=== PATIENT | male | born 1975 | race Caucasian/White ===

== ENCOUNTER 2023-11-15 06:44 | Emergency (ER) | payer BC, SELFPAY ==
[2023-11-15 06:49] VITALS: BP 131/95
[2023-11-15 07:17] LABS: % Basophils 0.3 % (0-2); % Eosinophils 1.9 % (0-6); % Immature Granulocytes 0.3 % (0-0.5); % Lymphocytes 18.2 % (20.5-51.1); % Monocytes 9.4 % (1.7-9.3); % Neutrophils 69.9 % (42.2-75.2); Absolute Eosinophils 0.2 10^3/uL (0-0.7); Absolute Lymphocytes 1.9 10^3/uL (1.2-3.4); Absolute Neutrophils 7.1 10^3/uL (1.4-6.5); Hematocrit 45.8 % (39.0-52.0); Hemoglobin 16.6 g/dL (13.0-18.0); Mean Corp Hgb Conc. 36.2 g/dL (33.0-37.0); Mean Corpuscular Hgb 32.4 pg (27.0-31.0); Mean Corpuscular Volume 89.5 fL (80.0-94.0); Mean Platelet Volume 10.2 fL (7.4-10.4); Nucleated Red Blood Cells % 0 % (-); Platelet Count 238 10^3/uL (130-400); Red Blood Cell Count 5.12 10^6/uL (4.70-6.10); White Blood Cell Count 10.2 10^3/uL (4.8-10.8)
[2023-11-15 07:34] LABS: ALT (SGPT) 19 U/L (0-50); AST (SGOT) 25 U/L (17-59); Albumin 4.3 g/dl (3.5-5.0); Alkaline Phosphatase 54 U/L (38-126); Blood Urea Nitrogen 13 mg/dl (9-20); Calcium 9.4 mg/dl (8.4-10.2); Carbon Dioxide 30 mmol/L (22-30); Chloride 105 mmol/L (98-107); Glucose 92 mg/dl (70-99); Potassium 4.5 mmol/L (3.5-5.1); Sodium 142 mmol/L (135-145); Total Protein 6.6 g/dl (6.3-8.2); eGFR > 60.00
[2023-11-15 07:42] LABS: Troponin I < 0.012 ng/ml
[2023-11-15 08:03] VITALS: BP 114/87
[2023-11-15 08:10] VITALS: BMI 25.9
--- NOTE | 2023-11-15 08:30 | ED.GENMED ---
History of Present Illness
<Riya Capone PA-C - Last Filed: 11/15/23 16:29>
General
Chief Complaint: Chest Pain
Source: patient
Exam Limitations: none
Time Seen by Provider: 11/15/23 08:07
Nursing documentation reviewed up to this point in time: agreed with
History of Present Illness
History of Present Illness:
48 y/o M with h/o newly diagnosed afib on metoprolol and eliquis
(eliquis since 11/02)
followed by dr. edmundo dai and dr. causey
plan is likely ablation in february
woke up at 3 AM with pleuritic chest pain, it feels like he cannot take a deep breath. He said he is never had this feeling before. He does not otherwise feel short of breath, he has no exertional chest pain. Nothing makes the pain better. He
did not try taking any medications. Patient has not had a fever, chills, recent URI, cough, hemoptysis, leg swelling. No recent long travel. He has been compliant with his Eliquis and starting its couple of weeks ago. He never was worked up for
a PE
Patient said that he had a normal echocardiogram, this was done on 8�9
He has no history of having a heart murmur.
He denies sweatiness, nausea, vomiting, abdominal pain
Past History
<Riya Capone PA-C - Last Filed: 11/15/23 16:29>
Past History
ED Past Medical History: Arrthythmia (Atrial fibrillation)
ED Past Surgical History: None
Social History
Tobacco: Non-smoker
Review of Systems
<Riya Capone PA-C - Last Filed: 11/15/23 16:29>
Review of Systems
Allergies reviewed?: Yes
All Other Systems: Not applicable
Phy Exam
<Riya Capone PA-C - Last Filed: 11/15/23 16:29>
Physical Exam
Physical Exam:
GENERAL: Alert , in no apparent distress at rest looks minimally uncomfortable
EYE: pupils equal and reactive
NECK: Supple
ENT: o/p clr, mmm.
CARDIAC: Irregularly irregular, 4 out of 6 murmur, sounds systolic, left sternal border and mitral
No JVD
LUNGS: Discomfort with deep breathing but otherwise not tachypneic
Possibly faint crackles left upper lobe
No chest wall tenderness
No rashes
ABDOMEN: Soft, without focal tenderness, no r/g, no cvat, normal bowel sounds
NEUROLOGICAL: Alert and oriented, no focal neuro deficits
SKIN: Warm and dry, skin intact.
MUSCULOSKELETAL: No edema, well perfused. neg rafa's sign
PSYCH: Normal and appropriate interaction.
Scores
<Riya Capone PA-C - Last Filed: 11/15/23 16:29>
Heart Score for Chest Pain Patients
STEMI patient?: No
History: Slightly or Non-Suspicious
ECG: Nonspecific Repolarization
Age: >45 - <65 years
Risk Factors: 1 or 2 Risk Factors
Troponin: </= Normal Limit
Heart Score for Chest Pain Patients: 3
Heart Score Risk: 2.5% MACE over next 6 weeks
Course
<Riya Capone PA-C - Last Filed: 11/15/23 16:29>
Orders/Labs/Results
Orders:
Orders
11/15/23 06:48
EKG [Electrocardiogram (*1)] Urgent
Reason for Study: Chest Pain
EKG- Treatment ONCE
11/15/23 06:57
Electrocardiogram (*1) Urgent
Reason for Study: Chest Pain
11/15/23 06:58
EKG- Treatment ONCE
11/15/23 07:06
C-Reactive Protein Urgent
Comment: ADD ON
Complete Blood Count/With Diff Urgent
Comprehensive Metabolic Panel Urgent
Erythrocyte Sed Rate Urgent
Comment: ADD ON
NT-proBNP Urgent
Comment: ADD ON
Troponin I Urgent
11/15/23 08:27
CARDIOLOGY CONSULT Urgent
Consulting Provider: Shelia Buckley
Was physician already notified: Yes
Acetaminophen [Tylenol] 1,000 mg PO NOW STA
11/15/23 08:28
Add On- LAB Urgent
Tests Added?: BNP
11/15/23 08:29
Echo Follow up Study W Dop Urgent
Reason for Study: chest pain, new murmur
CT Chest Pe Study Urgent
Comment:
Reason For Exam: pleuritic cp, new afib
11/15/23 08:31
Add On- LAB Urgent
Tests Added?: ESR, CRP
11/15/23 10:00
Electrocardiogram (*1) Urgent
Reason for Study: Chest Pain
11/15/23 10:03
Troponin I Urgent
11/15/23 12:14
Metoprolol Xl [Toprol Xl] 25 mg PO NOW STA
11/15/23 12:33
Mag Hydrox/Al Hydrox/Simeth [Maalox] 30 ml PO NOW STA
Abnormal Lab Results
11/15/23
07:06
MCH 32.4 H pg
(27.0-31.0)
Absolute Neuts (auto) 7.1 H 10^3/uL
(1.4-6.5)
Absolute Monos (auto) 1.0 H 10^3/uL
(0.1-0.6)
Lymphocytes % 18.2 L %
(20.5-51.1)
Monocytes % 9.4 H %
(1.7-9.3)
11/15/23 07:06
11/15/23 07:06
Vital Signs
Initial and Last Documented VS:
Initial Vital Signs
Temp Pulse Resp BP Pulse Ox
97.7 F 82 16 131/95 98
11/15/23 06:49 11/15/23 06:49 11/15/23 06:49 11/15/23 06:49 11/15/23 06:49
Last Documented Vital Signs
Temp Pulse Resp BP Pulse Ox
97.7 F 111 14 115/72 96
11/15/23 06:49 11/15/23 12:29 11/15/23 12:00 11/15/23 12:29 11/15/23 11:00
<Felisha Evans MD - Last Filed: 11/15/23 10:48>
Orders/Labs/Results
Orders:
Orders
11/15/23 06:48
EKG [Electrocardiogram (*1)] Urgent
Reason for Study: Chest Pain
EKG- Treatment ONCE
11/15/23 06:57
Electrocardiogram (*1) Urgent
Reason for Study: Chest Pain
11/15/23 06:58
EKG- Treatment ONCE
11/15/23 07:06
C-Reactive Protein Urgent
Comment: ADD ON
Complete Blood Count/With Diff Urgent
Comprehensive Metabolic Panel Urgent
Erythrocyte Sed Rate Urgent
Comment: ADD ON
NT-proBNP Urgent
Comment: ADD ON
Troponin I Urgent
11/15/23 08:27
CARDIOLOGY CONSULT Urgent
Consulting Provider: Shelia Buckley
Was physician already notified: Yes
Acetaminophen [Tylenol] 1,000 mg PO NOW STA
11/15/23 08:28
Add On- LAB Urgent
Tests Added?: BNP
11/15/23 08:29
Echo Follow up Study W Dop Urgent
Reason for Study: chest pain, new murmur
CT Chest Pe Study Urgent
Comment:
Reason For Exam: pleuritic cp, new afib
11/15/23 08:31
Add On- LAB Urgent
Tests Added?: ESR, CRP
11/15/23 10:00
Electrocardiogram (*1) Urgent
Reason for Study: Chest Pain
11/15/23 10:03
Troponin I Urgent
11/15/23 12:14
Metoprolol Xl [Toprol Xl] 25 mg PO NOW STA
11/15/23 12:33
Mag Hydrox/Al Hydrox/Simeth [Maalox] 30 ml PO NOW STA
Abnormal Lab Results
11/15/23
07:06
MCH 32.4 H pg
(27.0-31.0)
Absolute Neuts (auto) 7.1 H 10^3/uL
(1.4-6.5)
Absolute Monos (auto) 1.0 H 10^3/uL
(0.1-0.6)
Lymphocytes % 18.2 L %
(20.5-51.1)
Monocytes % 9.4 H %
(1.7-9.3)
11/15/23 07:06
11/15/23 07:06
Vital Signs
Initial and Last Documented VS:
Initial Vital Signs
Temp Pulse Resp BP Pulse Ox
97.7 F 82 16 131/95 98
11/15/23 06:49 11/15/23 06:49 11/15/23 06:49 11/15/23 06:49 11/15/23 06:49
Last Documented Vital Signs
Temp Pulse Resp BP Pulse Ox
97.7 F 111 14 115/72 96
11/15/23 06:49 11/15/23 12:29 11/15/23 12:00 11/15/23 12:29 11/15/23 11:00
<Riya Capone PA-C - Last Filed: 11/15/23 16:29>
MDM/Problems Addressed
Differential Diagnosis Includes:
Pericardial effusion, pericarditis, tamponade, leaflet rupture, PE
MDM/Problems Addressed:
48-year-old male with a history of newly diagnosed atrial fibrillation on anticoagulants presents for pleuritic chest discomfort that woke him up at 3 AM. Pain is worse only with deep breathing and not exertional. He did not have any associated
symptoms. He was told he had a normal echocardiogram and was never told of any abnormal heart sounds previously. On exam his vitals are stable, he looks minimally uncomfortable but in no distress. He has no chest wall tenderness. I appreciate a
loud systolic sounding murmur on the left sternal border, there is no JVD. I do not appreciate crackles in his bases. Patient has no edema. EKG was reviewed and compared to his old 1 which I do appreciate that he has slight upsloping and minimal
elevation of his J-point in the ST segments diffusely, which could suggest pericarditis. I added on ESR and CRP. Given the new atrial fibrillation diagnosis and recent Eliquis I will also rule out a PE. I spoke with Dr. Buckley on-call for "Caridad"Conner who authorized the echocardiogram. We will also trend troponins the first troponin was negative
pt had fairly unchanged echo, trace TR, trace AR
normal ef
no effusion
esr/crp neg
trylenol helped pain briefly but it did return
he has CT showing no PE
he does have cardiomegaly as well as esophagitis
pt did eat a spicy meal last night
cards did consult and pt's HR went up while here to 100s
otherwise vitals stable
pt had 2 neg trops
ekg shows some j point elevation which the cariologist compared to preivous and didn't think was significantly changed
it is not diffuse
cards recommended inc toprol xl to 25 mg bid irather than daily
add flecainide
and move up appt to next week
pt feels comfortable with this plan
also i do suspect some GERD/esophgagitis
will give maalox and protonix
seen by ed attending
<Riya Capone PA-C - Last Filed: 11/15/23 16:29>
*Critical Care Note
Total Time (30-74mins, 75-104mins- exclusive of procedures): Not Applicable
ED Attending Note
<Riya Capone PA-C - Last Filed: 11/15/23 16:29>
-
Portions of this chart may have been created with voice recognition software.� Occasional wrong word or��sound alike� substitutions may have occurred due to the inherent limitations of voice recognition software.
<Felisha Evans MD - Last Filed: 11/15/23 10:48>
ED Attending Note
Patient seen and examined by attending physician: Yes
I performed the substantive portion of visit, reviewed & personally made and approve the management plan that is documented in note by myself or GARCIA.: Yes
ED Attending Note:
Patient is a 40-year-old male with history of A-fib on Eliquis presenting to the emergency department with chest pain. Has been in A-fib for the past few days. Has plan for ablation in February. Compliant with Eliquis. Woke up with chest pain at
3 AM. It is midsternal. Does not radiate. It is pleuritic. Does get better with leaning forward. No recent infections. No shortness of breath. No leg swelling. No nausea vomiting diaphoresis. Vitals are notable for patient who is currently
in A-fib in the low 90s to 1 teens. Exam does show comfortable appearing man with irregularly irregular rhythm that is rate controlled in the low 100s though occasionally does go up to the 140s with speaking. Generalized radial pulses bilaterally.
Differential consists of pericarditis versus ACS versus PE though less likely given compliance with Eliquis. EKG per my interpretation with slight elevation anterior laterally. ARAMIS did discuss with cardiology. Recommending CT PE, echo. Will
obtain delta troponin. Will pain control. Cardiology will evaluate patient dispo pending delta troponin and pain reevaluation.
Discharge Plan
Departure
Patient Disposition: Home (Routine Discharge)
Date of Disposition: 11/15/23
Time of Disposition: 12:33
Patient with high blood pressure during this ER visit?: No
Condition: Fair
Covid-19: Not Applicable
Discharge Problem:
Atrial fibrillation, Chest pain, Esophagitis
Instructions: Atrial Fibrillation (DC), Acid reflux and GERD in adults, Chest pain - Discharge instructions
Prescriptions:
New
pantoprazole [Protonix] 20 mg tablet,delayed release (DR/EC)
20 mg PO DAILY Qty: 30 0RF
flecainide 50 mg tablet
50 mg PO Q12H Qty: 60 5RF
Referrals:
[facility] [Provider Group] - 11/20/23 11:40 am (You have an EKG visit at [place] office. Please call with questions. )
Sherry Lynn MD [Family Provider] -
Galilea Payton PA-C [Specified Professional Personl] - 11/29/23 3:40 pm (You have a cardiology follow up appointment at the [place] office with Dr. Causey's physician reference library assistant Galilea. Please call with questions. )
Activity Restrictions/Additional Instructions:
THE SUPERINTENDENT TESTS RECOMMENDED INCREASING YOUR TOPROL TO TWICE A DAY AND ADDING A NEW MEDICATION FOR YOUR HEART RATE CALLED FLECAINIDE TWICE A DAY
MAKE SURE TO AVOID STANDING UP TOO QUICKLY
CONTINUE YOUR ELIQUIS
USE PROTONIX 20 MG IN THE MORNING 45 MINUTES BEFORE EATING/DRINKING (YOU CAN TAKE WITH GLASS OF WATER).
AVOID SPICY FOODS, EATING LATE AT NIGHT
USE MAALOX NEEDED EVERY 8 HOURS
TAKE TYLENOL EVERY 6 HOURS NEEDED
FOLLOW UP WITH SUPERINTENDENT TESTS PLANNED
YOU ALSO SHOULD SEE A GI DOCTOR FOR FURTHER EVAULATION, POSSIBLY ENDOSCOPY
RETURN FOR: BLACK STOOL, VOMITING, SHORTNESS OF BREATH, PASSING OUT, FEVER, OR ANY CONCERNS.
Interventions
Interventions:
*Risk Screen - Suicide Last Done: 11/15/23 08:00
*General Assessment Last Done: 11/15/23 08:00
*Neglect/Abuse Screening Last Done: 11/15/23 08:00
*Nursing Disposition Last Done: 11/15/23 12:56
ED- Cardiac Assessment Last Done: 11/15/23 09:07
Discharge Date and Time
Discharge Date/Time: 11/15/23 12:57
Print Language: FAROESE
[2023-11-15] MEDS: TYLENOL 1000 MG PO (08:38)
[2023-11-15 09:00] VITALS: BP 122/72
[2023-11-15 09:08] LABS: NT-proBNP 886 pg/ml
[2023-11-15 10:08] LABS: Erythrocyte Sed Rate 3 mm/hour (0-20)
[2023-11-15 10:14] VITALS: BP 102/62
[2023-11-15 10:40] LABS: Troponin I < 0.012 ng/ml
[2023-11-15 11:00] VITALS: BP 106/83
[2023-11-15 11:40] LABS: C-Reactive Protein < 5.00 mg/L (0.0-10.00)
--- NOTE | 2023-11-15 11:47 | CON.CAR ---
Consultation
Consultation Request
Date/Time Consultation Performed: 11/15/23
Requesting Provider: Riya Capone PA-C
Performing Provider: Bailee Valdovinos PA-C for Dr. Alexy Buckley
Reason for Consultation: afib, CP
Medical History
-
Chief Complaint: CP
History of Present Illness:
Patient is a 48 yo M diagnosed with paroxysmal atrial fibrillation 09/2023. He was seen by Dr. Francois and underwent 14 day cardiac/vascular sonographer showing 10% afib burden. He was started on eliquis and toprol. He reports since that time he has had paroxysms of
atrial fibrillation. He was referred to Dr. Prieto to discuss ablation, presently scheduled for 02/19/24. He reports he feels he has been in afib since Sunday. He typically feels more fatigued and checks is rhythm on his watch and checks pulse. He
states this morning he woke up at 3AM to go to the bathroom and noted burning central chest discomfort, worse with movement and taking a deep breath. He reports he has had this before although more mild with afib in past. He denies CP or SOB
limiting his activity. States he plays golf and tennis although has not been cycling as much. Troponins negative x 2. Chest CT without evidence of dissection or PE. He is currently in atrial fibrillation with heart rates in 80s to 110s. Pain
improved somewhat with Tylenol. Cardiology consulted for evaluation
PMH:
Paroxysmal atrial fibrillation
Chronic anticoagulation with Eliquis
Past Medical History
Past Medical History: Other (in HPI)
Social History
Tobacco: Non-Smoker
Alcohol: Occasional
Personal:
Living: With Family
Employment: Employed
Family History
Family History: Reviewed & Not Pertinent
Allergies / Home Medications
Allergy/AdvReac Type Severity Reaction Status Date / Time
No Known Allergies Allergy Verified 11/15/23 06:49
Review of Systems
-
History Source: Patient and Family
All other systems: Negative unless noted
Physical Exam
Vital Signs
Temp Pulse Resp BP Pulse Ox
97.7 F 89 14 106/83 96
11/15/23 06:49 11/15/23 11:00 11/15/23 11:00 11/15/23 11:00 11/15/23 11:00
Lab Results
11/15/23 07:06
11/15/23 07:06
Troponin I < 0.012 ng/ml 11/15/23 10:03
Gye-X-Duduezmclux Pept 886 pg/ml 11/15/23 07:06
Physical Exam
General: No Apparent Distress and Comfortable
HEENT: Normocephalic, Anicteric and Moist Mucous Membranes
Respiratory: Clear and Non Labored Respirations
Cardiac: S1/S2 and Regular Rhythm
GI: Soft, Non Tender, Non Distended and Normal Bowel Sounds
Musculoskeletal: No Clubbing, No Cyanosis and No Edema
Skin: Warm and Dry
Neuro: AO x 3
Impression / Plan
-
Primary motorcycle repairer: Dr. Francois
Primary EP: Dr. Prieto
Assessment:
Presentation with chest discomfort/burning
Negative troponins x 2
Paroxysmal atrial fibrillation, symptomatic
Chronic anticoagulation with Eliquis
NSVT 5 beats by monitor 09/2023
Echo 10/26/2023: EF 60 to 65%, normal RV function, no significant valvular disease
Echo 11/15/2023: EF 60 to 65%, no regional wall motion abnormalities noted, trace MR, trace AR, trace TR, PAP 25-30mmHg
Plan:
-Patient presents with chest discomfort/burning which appears atypical for angina
-pain somewhat improved with tylenol
-negative troponins x 2
-Chest CT negative for dissection, PE
-echo with results as above, EF preserved, no regional wall motion abnormalities, no LVH
-EKG in afib. review of tele with HRs 80-110s
-discussed no utility in CV given paroxsymal nature of his afib. plan to initiate flecainide 50mg BID
-EKG on Sunday11/20/23 in office
Data Reviewed
-
EKG: Tracing Personally Visualized and interpreted
Radiology: Report Reviewed by me
CT Scan: Report Reviewed by me
Medical Tests (Nuc Med, Echo etc): Report Reviewed by me
Labs: Labs Reviewed by me
Old Records: Reviewed
[2023-11-15 12:00] VITALS: BP 112/70
--- NOTE | 2023-11-15 12:28 | CON.CAR ---
Addendum entered and electronically signed by Rogelio Buckley MD 11/15/23 14:49:
Patient seen, interviewed and examined by me.
Well-appearing, no acute distress
irregular rate and rhythm with normal S1 and S2, no S3 no S4. There is a grade 1/6 apical holosystolic murmur and no rubs. PMI is normally placed.
Lungs are clear to auscultation bilaterally without wheezes rales or rhonchi.
Abdomen soft nontender nondistended with normoactive bowel sounds
Extremities show trace pretibial edema bilaterally no clubbing or cyanosis.
Neurologic exam is grossly nonfocal.
Troponins have been negative EKG is not suggestive of an acute ischemic event and echocardiogram shows no structural abnormalities, normal wall motion
Agree with advanced practice professionals assessment and plan as noted below.
I am discussed our plan with the patient and his and they are in agreement. They will initiate flecainide 50 mg twice daily.
If he does not convert to sinus rhythm over the next several days she can be considered for cardioversion while he awaits his ablation.
All of their questions have been answered.
Original Note:
Consultation
Consultation Request
Date/Time Consultation Performed: 11/15/23
Requesting Provider: Riya Capone PA-C
Performing Provider: Bailee Valdovinos PA-C for Dr. Alexy Buckley
Reason for Consultation: afib, CP
Medical History
-
Chief Complaint: CP
History of Present Illness:
Patient is a 48 yo M diagnosed with paroxysmal atrial fibrillation 09/2023. He was seen by Dr. Francois and underwent 14 day nuclear monitoring technician showing 10% afib burden. He was started on eliquis and toprol. He reports since that time he has had paroxysms of
atrial fibrillation. He was referred to Dr. Prieto to discuss ablation, presently scheduled for 02/19/24. He reports he feels he has been in afib since Sunday. He typically feels more fatigued and checks is rhythm on his watch and checks pulse. He
states this morning he woke up at 3AM to go to the bathroom and noted burning central chest discomfort, worse with movement and taking a deep breath. He reports he has had this before although more mild with afib in past. He denies CP or SOB
limiting his activity. States he plays golf and tennis although has not been cycling as much. Troponins negative x 2. Chest CT without evidence of dissection or PE. He is currently in atrial fibrillation with heart rates in 80s to 110s. Pain
improved somewhat with Tylenol. Cardiology consulted for evaluation
PMH:
Paroxysmal atrial fibrillation
Chronic anticoagulation with Eliquis
Past Medical History
Past Medical History: Other (in HPI)
Social History
Tobacco: Non-Smoker
Alcohol: Occasional
Personal:
Living: With Family
Employment: Employed
Family History
Family History: Reviewed & Not Pertinent
Allergies / Home Medications
Allergy/AdvReac Type Severity Reaction Status Date / Time
No Known Allergies Allergy Verified 11/15/23 06:49
Review of Systems
-
History Source: Patient and Family
All other systems: Negative unless noted
Physical Exam
Vital Signs
Temp Pulse Resp BP Pulse Ox
97.7 F 93 14 112/70 96
11/15/23 06:49 11/15/23 12:00 11/15/23 12:00 11/15/23 12:00 11/15/23 11:00
Lab Results
11/15/23 07:06
11/15/23 07:06
Troponin I < 0.012 ng/ml 11/15/23 10:03
Ggt-P-Ehkggearrlt Pept 886 pg/ml 11/15/23 07:06
Physical Exam
General: No Apparent Distress and Comfortable
HEENT: Normocephalic, Anicteric and Moist Mucous Membranes
Respiratory: Clear and Non Labored Respirations
Cardiac: S1/S2 and Regular Rhythm
GI: Soft, Non Tender, Non Distended and Normal Bowel Sounds
Musculoskeletal: No Clubbing, No Cyanosis and No Edema
Skin: Warm and Dry
Neuro: AO x 3
Impression / Plan
-
Primary Extruder: Dr. Francois
Primary EP: Dr. Prieto
Assessment:
Presentation with chest discomfort/burning
Negative troponins x 2
Paroxysmal atrial fibrillation, symptomatic
Chronic anticoagulation with Eliquis
NSVT 5 beats by monitor 09/2023
Echo 10/26/2023: EF 60 to 65%, normal RV function, no significant valvular disease
Echo 11/15/2023: EF 60 to 65%, no regional wall motion abnormalities noted, trace MR, trace AR, trace TR, PAP 25-30mmHg
Plan:
-Patient presents with chest discomfort/burning which appears atypical for angina
-pain somewhat improved with tylenol
-start PPI for possible GERD and as on OAC
-negative troponins x 2.
-Chest CT negative for dissection, PE. no coronary artery calcifications noted
-echo with results as above, EF preserved, no regional wall motion abnormalities, no LVH
-EKG in afib. review of tele with HRs 80-110s
-discussed no utility in CV given paroxysmal nature of his afib. plan to initiate flecainide 50mg BID
-EKG on Sunday11/20/23 in office
-follow up in [facility] office 11/28. cancelled appt with Dr. Francois for this afternoon
-d/w ER PA. d/w patient and at bedside
-d/w Dr. Francois
Data Reviewed
-
EKG: Tracing Personally Visualized and interpreted
Radiology: Report Reviewed by me
CT Scan: Report Reviewed by me
Medical Tests (Nuc Med, Echo etc): Report Reviewed by me
Labs: Labs Reviewed by me
Old Records: Reviewed
[2023-11-15] MEDS: TOPROL XL 25 MG PO (12:29)
[2023-11-15] MEDS: MAALOX 30 ML PO (12:38)
== END 2023-11-15 12:57 | disposition home or self-care (01) ==
LOC: EMR 06:44
PROVIDERS: Physician Assistant; Student in an Organized Health Care Education/Training Program; EMERGENCY PHYSICIAN Student in an Organized Health Care Education/Training Program; FAMILY PHYSICIAN Internal Medicine; OTHER PHYSICIAN Internal Medicine Cardiovascular Disease
DX: I48.0 Paroxysmal atrial fibrillation (principal); R07.89 Other chest pain; R07.81 Pleurodynia; R53.83 Other fatigue; K20.90 Esophagitis, unspecified without bleeding; R01.1 Cardiac murmur, unspecified; Z79.01 Long term (current) use of anticoagulants; Z79.899 Other long term (current) drug therapy
CPT/HCPCS: 99285; 93308; 71275; 80053; 83880; 84484; 85025; 85652; 86140; 93005; 93321; 93325; Q9967

== ENCOUNTER 2024-01-09 07:58 | Day surgery (SDC) | payer BC, SELFPAY ==
[2023-12-28 13:01] VITALS: BMI 26.7
[2023-12-28 13:39] LABS: % Basophils 0.6 % (0-2); % Eosinophils 2.6 % (0-6); % Immature Granulocytes 0.2 % (0-0.5); % Lymphocytes 25.5 % (20.5-51.1); % Monocytes 10.9 % (1.7-9.3); % Neutrophils 60.2 % (42.2-75.2); Absolute Eosinophils 0.2 10^3/uL (0-0.7); Absolute Lymphocytes 1.6 10^3/uL (1.2-3.4); Absolute Monocytes 0.7 10^3/uL (0.1-0.6); Absolute Neutrophils 3.9 10^3/uL (1.4-6.5); Hematocrit 45.4 % (39.0-52.0); Hemoglobin 16.2 g/dL (13.0-18.0); Mean Corp Hgb Conc. 35.7 g/dL (33.0-37.0); Mean Corpuscular Hgb 31.5 pg (27.0-31.0); Mean Corpuscular Volume 88.2 fL (80.0-94.0); Mean Platelet Volume 10.4 fL (7.4-10.4); Nucleated Red Blood Cells % 0 % (-); Platelet Count 226 10^3/uL (130-400); Red Blood Cell Count 5.15 10^6/uL (4.70-6.10); Red Cell Dist. Width 12.1 % (11.5-14.5); White Blood Cell Count 6.4 10^3/uL (4.8-10.8)
[2023-12-28 13:51] LABS: ALT (SGPT) 31 U/L (0-50); AST (SGOT) 29 U/L (17-59); Albumin 4.6 g/dl (3.5-5.0); Alkaline Phosphatase 44 U/L (38-126); Blood Urea Nitrogen 20 mg/dl (9-20); Calcium 9.4 mg/dl (8.4-10.2); Carbon Dioxide 32 mmol/L (22-30); Chloride 99 mmol/L (98-107); Estimated Creatinine Clearance 89 ml/min; Glucose 86 mg/dl (70-99); Potassium 4.7 mmol/L (3.5-5.1); Sodium 141 mmol/L (135-145); Total Bilirubin 0.6 mg/dl (0.2-1.3); Total Protein 6.9 g/dl (6.3-8.2); eGFR > 60.00
[2023-12-28 14:02] LABS: INR 1.15; PT 14.6 Sec (11.4-14.6)
--- NOTE | 2024-01-01 10:39 | W.PN.UPDATE ---
Update Note
Progress Note Update
Incidental pulmonary nodule on CT--faxed to PCP
[2024-01-09] VITALS (13 sets, daily range): BP systolic 80–103; BP diastolic 52–89
[2024-01-09 11:41] LABS: ACT-LR - POC 255 Seconds (116-155)
[2024-01-09 11:58] LABS: ACT-LR - POC 314 Seconds (116-155)
--- NOTE | 2024-01-09 12:25 | ITS.CL.ABL ---
[employer] - Ablation
Ablation
Procedure Report:
ELECTROPHYSIOLOGY ABLATION STUDY
�
DATE:: January 09, 2024�����������������������������REFERRING: Dr. Jarocho wyatt
�
INDICATION: Paroxysmal supraventricular tachycardia in the form of atrial fibrillation.��Also presented in typical appearing atrial flutter today
�
HISTORY: See H and P.��As above
�
ANTIARRHYTHMIC DRUG: Flecainide
�
PRE-PROCEDURE ZUHAIR: No atrial thrombus
�
PRESENTING RHYTHM: Typical atrial flutter 260 ms
�
'TIME-OUT':��called and confirmed.
�
SEDATION/ANESTHESIA:��provided via the anesthesia department using general anesthesia (LMA).
�
INTRAVENOUS/ARTERIAL ACCESS:
Right femoral venous - 8Fr
Left femoral venous - 8 Fr, 6 Fr
[id number] suture to each groin
Ultrasound guidance for bilateral femoral vein access was utilized by me to obtain access with demonstration of normal anatomy
CHADS-VASC Score:
�
HAS-Bled Score
�
PROCEDURE:
1.��A decapolar CS catheter was placed within the CS for mapping and pacing.��This was also used as the reference catheter for the 3-D map. The patient presented into 60 ms counterclockwise right atrial flutter demonstrated by activation mapping
with the multipolar catheter and entrainment with PPI equal to tachycardia cycle length in the lateral isthmus septal isthmus and out from the distal coronary sinus demonstrating a macro entry mechanism about the tricuspid valve. Utilizing the fair
drive sheath and the fair pulse catheter and flower pose the flower was seated on the isthmus and the lateral portion with sequential ablation and trains of 2 at the valve first and then in the mid lateral isthmus which terminated tachycardia to
bidirectional block. 2 additional lesions were given with bidirectional block intra isthmus conduction time 140 ms and then we proceeded to transseptal puncture as below to ablate the pulmonary veins. Sequential doses of nitroglycerin 100 mcg
dosing x 2 were given preablation in the CTI. The lateral isthmus was chosen to minimize or mitigate risk to the right coronary artery.
�
2. The intracardiac ultrasound catheter was positioned in the RA to identify the FO for targeting of transseptal puncture, assist��in identification of the pulmonary vein ostia, monitoring pre and post ablation pulmonary vein flow velocities,
monitoring for 'bubble' formation during RF application as a sign of thermal injury,��and to monitor for pericardial effusion during mapping and ablation procedure.���Left atrial size, LV ejection fraction, and pulmonary vein flows were monitored
pre and post ablation procedure. The other valves were inspected and found to be free of significant regurgitation or stenosis.
�
3.��Half of the calculated heparin bolus was administered prior to the first transeptal puncture.��Transseptal puncture was performed to diagnose RA and LA pressure so that safety of LA mapping and ablation could be further assessed, and to access
the left atrium and pulmonary veins for mapping and ablation.��This entailed advancing an 8 Fr SL-1 sheath with dilator into the superior vena cava and withdrawing both (monitoring intracardiac ultrasound, fluoroscopy and tip pressure) with the tip
oriented toward the atrial septum.��The fossa ovalis was engaged (indicated by sudden displacement of the sheath tip as well as tenting of the fossa seen on intracardiac ultrasound).��Left atrial access required a pass with the [place]rough needle
extended.��Left atrial catheter position was confirmed by pressure monitoring (RA mean pressure 8 mm Hg and LA mean presure 14 mm Hg), LA saturation (99%),��as well as fluoroscopy.��The sheath was advanced over the dilator and positioned in the left
atrium.����The remainder of the calculated heparin bolus was administered and heparin was
infused to maintain ACT at 300 -350 seconds throughout the case.
�
4.��RA pacing was performed via the proximal decapolar poles and LA pacing was performed via the distal decapolr poles.
�
5. A quadrapolar catheter was first positioned at the His position for His Bundle recording which was tagged via the 3-D Navex sytem, and then passed to the RVA for RV pacing and recording.
�
6. The multipolar grid and the PFA catheter were placed in each of the LIPV, LSPV, RSPV and the RIPV.��
�
7.��Next, a 3-D map was created using Navex.���A 3-D reconstructed CT image was compared to the 3-D Navex map to assist in anatomic interpretation, mapping and ablation.��The CT image and the NavX image were fused.
�
8. A total of 62 lesions were given to the pulmonary veins in all of basket and flower poses. There was an area of reconnection at the left superior pulmonary vein and the posterior wall and ratna and lesions were given in basket and all of pose
with direct contact through intracardiac ultrasound isolating the veins with entrance and exit block.
�
9. Normal sinus node and AV alexx function noted
�
TOTAL FLOURO TIME: 22.6 minutes
�
TOTAL RF DURATION: 0 minutes
�
REVERSAL OF HEPARIN: 35 mg of protamine, slow IV administration
�
COMPLICATIONS:
None
Intracardiac US shows no pericardial effusion post ablation.
�
SUMMARY:��
Complex left atrial mapping and ablation.
Typical atrial flutter addressed with PFA and the CTI in the flower pose. Pulmonary vein isolation with entrance and exit block achieved as above. After 30-minute waiting period bidirectional block persisted into isthmus conduction time 145 ms
�
RECOMMENDATIONS:
1. Ambulate in 4 hours
2. Resume anticoagulation
3.� Discontinue flecainide
4.� Consider same-day discharge
�
Copy to: Dr. Jarocho wyatt
�
[2024-01-09] MEDS: ANESTHETIC LOZENGE 1 LOZENGE PO (13:45)
--- NOTE | 2024-01-09 16:15 | W.PN.UPDATE ---
Update Note
Progress Note Update
48 yo WM s/p PVI (Same day). He denies cp, sob, miguelina diet, EKG SR, b/l groins c/d/i no HT, soft. He will continue OAC Eliquis, dose at home tonight. He will stop flecainide and continue metoprolol. Activity restrictions reviewed. He will f/u Dr. Francois
in 3 mo. He is for d/c home after 5pm if groins stable and able to void.
SUMMARY:��
Complex left atrial mapping and ablation.
Typical atrial flutter addressed with PFA and the CTI in the flower pose. Pulmonary vein isolation with entrance and exit block achieved as above. After 30-minute waiting period bidirectional block persisted into isthmus conduction time 145 ms
== END 2024-01-09 17:17 | disposition home or self-care (01) ==
LOC: CATH 07:58
PROVIDERS: ATTENDING PHYSICIAN Internal Medicine Cardiovascular Disease; FAMILY PHYSICIAN Internal Medicine; OTHER PHYSICIAN Internal Medicine Cardiovascular Disease
DX: I48.3 Typical atrial flutter (principal); I48.0 Paroxysmal atrial fibrillation; I47.20 Ventricular tachycardia, unspecified; E78.5 Hyperlipidemia, unspecified; Z79.899 Other long term (current) drug therapy; Z79.01 Long term (current) use of anticoagulants; R91.1 Solitary pulmonary nodule; I47.19 Other supraventricular tachycardia
CPT/HCPCS: C1732; C1894; C1730; C1769; C1892; C1759; 36415; 75572; 80053; 83735; 85025; 85347; 85610; 86850; 86900; 86901; 93005; 93655; 93656; C1733; C1766; Q9967